=== PATIENT | female | born 1990 | race Hispanic/Latino ===

== ENCOUNTER 2025-05-13 19:38 | Emergency (ER) | payer SELFPAY ==
[2025-05-13] MEDS ORDERED: HYDROcodone/Acetaminophen 5/325 mg Tablet ONE (21:51)
== END 2025-05-13 22:55 | disposition home or self-care (01) ==
LOC: ERS 19:38
DX: S61.214D Laceration without foreign body of right ring finger without damage to nail, subsequent encounter (principal); L08.9 Local infection of the skin and subcutaneous tissue, unspecified
CPT/HCPCS: 96365; J0692